=== PATIENT | female | born 1995 ===

== ENCOUNTER → 2023-10-13 13:41 | Outpatient (CLI) | payer MEDICAID, SELFPAY ==
--- NOTE | 2023-10-13 13:24 | DI.RAD_ITS ---
Exam(s) XR KNEE RT 3V AP,LAT,KEVIN EXAM: XR KNEE RT 3V AP,LAT,KEVIN CLINICAL HISTORY: PAIN RT KNEE JOINT, M25.561. TECHNIQUE: 2D digital imaging was performed of the right knee. Three views obtained. AP, lateral an d PA tunnel views were obtained. COMPARISON: No exams were available for comparison FINDINGS: BONES: No acute fracture is present. No bony destructive lesion is seen. JOINTS: The knee is normally aligned. There is a moderate size joint effusion. SOFT TISSUE: Normal. IMPRESSION: Moderate sized joint effusion. DATA REPOSITORY: RADIATION DOSE DELIVERED:
== END ==
PROVIDERS: Visit Provider Physician Assistant Medical
DX: M25.561 Pain in right knee (principal)
CPT/HCPCS: 73562